=== PATIENT | male | born 1970 | race Caucasian/White ===

== ENCOUNTER 2022-08-25 16:13 | Emergency (ER) | payer BC ==
[~2022-08-25] VITALS: Ht 180.3 cm; Wt 81.6 kg
[2022-08-25] MEDS ORDERED: ESCI10TA PO (16:22)
[2022-08-25] MEDS ORDERED: FINA1TAB PO (16:22)
[2022-08-25] MEDS ORDERED: TDAP DIPH,PERTUSS,TET VAC/PF 0.5 ML DISP.SYRIN IM ONE (16:44)
[2022-08-25] MEDS ORDERED: IBUP-1955 PO (16:58)
--- NOTE | 2022-08-25 16:58 | NUR ---
Administered Tdap left deltoid. Order is not transferring over to [facility].
--- NOTE | 2022-08-25 17:09 | NUR ---
Gave pt RX and d/c instructions, pt verbalized understanding.
== END 2022-08-25 17:30 | disposition home or self-care (01) ==
LOC: ER 16:18
DX: S63.292A Dislocation of distal interphalangeal joint of right middle finger, initial encounter (principal); S80.211A Abrasion, right knee, initial encounter; W01.0XXA Fall on same level from slipping, tripping and stumbling without subsequent striking against object, initial encounter; Y93.02 Activity, running; Y92.89 Other specified places as the place of occurrence of the external cause
CPT/HCPCS: 73140; 90715; A4663